=== PATIENT | male | born 1945 | race Caucasian/White ===

== ENCOUNTER → 2016-11-25 | Day surgery (SDC) | payer OTHER, MEDICARE ==
[~2016-11-25] VITALS: Ht 177.8 cm; Wt 83.9 kg
[~2016-11-25] MED LIST: ACETAMINOPHEN 325 MG TAB PO PRN; ASPI1TAB PO; ATOR40TA PO; BETAMETHASONE SOLUSPAN 6MG/ML INJ 5ML (J0702) As Ordered ONE; BSS with VANC/TOB/EPI for EYE CASES IR ONE; CLOP75TA2 PO; CYCLOPENTOLATE 2% OPHTH SOLN OS ONE; D5W/0.2% SODIUM CHLORIDE 1,000 ML IV SCH; HEALON DUET (HEALON 10MG/ML 0.55ML & HEALON ENDOCOAT 30MG/ML 0.85ML) As Ordered ONE; KETOROLAC 0.5% OPHTH SOLN XX ONE; LIDOCAINE 2% W/EPIN INJ 20ML **PRES FREE As Ordered ONE; LIDOCAINE 4% INJ 5 ML AMP OU ONE; METO25TAB PO; MIDAZOLAM INJ 2 MG/2 ML VIAL (J2250) As Ordered ONE; MOXIFLOXACIN IN BSS 0.25MG/0.25ML INTRACAMERAL INJ (OR EYE ONLY)(J2280) As Ordered ONE; MULT1TAB10 PO; OFLOXACIN 0.3 % (OCUFLOX) OPTH SOL 5ML OS ONE; PHENYLEPHRINE 2.5% OPHTH SOL 2ML OS ONE; POVIDONE-IODINE 5% OPHTH PREP SOL 30ML As Ordered ONE; PROPARACAINE 0.5% OPHTH SOL 15ML OS PRN; TOBRADEX OPHTH OINT 3.5 GM As Ordered ONE; TOBRAMYCIN INJ 80 MG/2 ML VIAL (J3260) As Ordered ONE; TRIMETHOBENZAMIDE 300 MG CAP PO PRN; TROPICAMIDE 1% OPHTH SOLN 2 ML OS ONE; fentaNYL 100 MCG/2 ML INJECTION (J3010) As Ordered ONE; mitoMYcin (FOR OPHTHALMIC USE) 0.3MG/1ML SYRINGE IN NaCl (J7999) As Ordered ONE; mitoMYcin (FOR OPHTHALMIC USE) 0.3MG/1ML SYRINGE IN NaCl (J7999) XX SCH
[2016-11-25 11:12] VITALS: BP 130/78
--- NOTE | 2016-11-25 11:29 | RO ---
DATE OF PROCEDURE: 11/25/2016 PREPROCEDURE DIAGNOSIS: Glaucoma, right eye. POSTPROCEDURE DIAGNOSIS: Glaucoma, right eye. PROCEDURE: Placement of the Ex-Press shunt and endocyclophotocoagulation, left eye. SURGEON: Margarita Weathers MD LINEN CONTROLLER: None. ANESTHESIA: COMPLICATIONS: None. DESCRIPTION OF PROCEDURE: Procedure in detail: The patient was brought to the operating room after informed consent, and the eye was prepped and draped in a sterile fashion for ophthalmic surgery. A lid speculum was placed. A suture was then placed through the superior limbus to help rotate the eye inferiorly. The patient's eye was examined, and it was noted that the conjunctiva over the previously-placed Ex-Press shunt was very thin and friable, and it was decided to leave the shunt alone and create a new scleral flap with the new shunt. 2% lidocaine with 1:100,000 epinephrine was then placed in the subconjunctival space supranasally, following which the conjunctival peritomy was done for 2 o'clock hours supranasally, followed by subconjunctival dissection superiorly, medially, and laterally. A limbal-based rectangular scleral flap 4 mm x 3 mm was then placed. Prior to this, mitomycin 0.3 mg per mL was then placed over the scleral bed for 2-1/2 minutes, followed by copious irrigation with balanced salt solution. After the scleral flap was created, it was lifted, and anterior chamber was entered with a 27-guage needle with a blue line. The needle was retracted, and the Ex-Press shunt was then placed through the same opening and draped over by the flap. The conjunctiva was then closed using #8-0 Vicryl sutures and #10-0 nylon sutures. No leaks were noted. Temporal clear corneal incision was then made with a 2.5 mm keratome, and endocyclophotocoagulation was done under direct view on the video camera with the help of the EndoProbe for 280 degrees between 25 mW and 30 mW. Good results were noted by the shrinking of the ciliary processes. Prior to this, EndoCoat and Healon was injected into the anterior chamber to visualize the ciliary processes. At the end of the case, the viscoelastic was aspirated, the wound was hydrated, and lid speculum was removed. The eye was patched with the TobraDex ointment, the Rojas shield applied, and the patient returned to the recovery room in stable condition.
== END | disposition home or self-care (01) ==
LOC: M SDC 09:01
PROVIDERS: ATTEND Ophthalmology
DX: H40.9 Unspecified glaucoma (principal); R07.9 Chest pain, unspecified; I25.10 Atherosclerotic heart disease of native coronary artery without angina pectoris; I10 Essential (primary) hypertension; E78.5 Hyperlipidemia, unspecified; R06.83 Snoring; Z79.899 Other long term (current) drug therapy; Z79.82 Long term (current) use of aspirin; Z95.5 Presence of coronary angioplasty implant and graft
CPT/HCPCS: 66183; 66711; C1783; J2250; J2280; J3010; J7999

== ENCOUNTER 2018-10-25 07:42 | Day surgery (SDC) | payer MEDICARE, OTHER ==
[~2018-10-25] VITALS: Ht 177.8 cm; Wt 81.6 kg
[~2018-10-25 07:42] MED LIST changes: -ACETAMINOPHEN 325 MG TAB PO PRN; +ALPH0.156 OU; -ASPI1TAB PO; +ASPI81TA26 PO; -ATOR40TA PO; +ATOR40TA75 PO; -BETAMETHASONE SOLUSPAN 6MG/ML INJ 5ML (J0702) As Ordered ONE; +BIMA01SOL OD; -BSS with VANC/TOB/EPI for EYE CASES IR ONE; +COSO1SOL3 OU; -CYCLOPENTOLATE 2% OPHTH SOLN OS ONE; -D5W/0.2% SODIUM CHLORIDE 1,000 ML IV SCH; -HEALON DUET (HEALON 10MG/ML 0.55ML & HEALON ENDOCOAT 30MG/ML 0.85ML) As Ordered ONE; -KETOROLAC 0.5% OPHTH SOLN XX ONE; -LIDOCAINE 2% W/EPIN INJ 20ML **PRES FREE As Ordered ONE; -LIDOCAINE 4% INJ 5 ML AMP OU ONE; +METO25TA4 PO; -METO25TAB PO; -MIDAZOLAM INJ 2 MG/2 ML VIAL (J2250) As Ordered ONE; -MOXIFLOXACIN IN BSS 0.25MG/0.25ML INTRACAMERAL INJ (OR EYE ONLY)(J2280) As Ordered ONE; +NS 1,000 ML IV ONE; -OFLOXACIN 0.3 % (OCUFLOX) OPTH SOL 5ML OS ONE; -PHENYLEPHRINE 2.5% OPHTH SOL 2ML OS ONE; -POVIDONE-IODINE 5% OPHTH PREP SOL 30ML As Ordered ONE; -PROPARACAINE 0.5% OPHTH SOL 15ML OS PRN; -TOBRADEX OPHTH OINT 3.5 GM As Ordered ONE; -TOBRAMYCIN INJ 80 MG/2 ML VIAL (J3260) As Ordered ONE; -TRIMETHOBENZAMIDE 300 MG CAP PO PRN; -TROPICAMIDE 1% OPHTH SOLN 2 ML OS ONE; -fentaNYL 100 MCG/2 ML INJECTION (J3010) As Ordered ONE; -mitoMYcin (FOR OPHTHALMIC USE) 0.3MG/1ML SYRINGE IN NaCl (J7999) As Ordered ONE; -mitoMYcin (FOR OPHTHALMIC USE) 0.3MG/1ML SYRINGE IN NaCl (J7999) XX SCH
[2018-10-25] MEDS ORDERED: PROPOFOL 500 MG/50 ML VIAL As Ordered ONE (08:45)
[2018-10-25] MEDS ORDERED: LIDOCAINE 2% INJ 100 MG/5 ML SDV (FOR ANES.) As Ordered ONE (08:45)
--- NOTE | 2018-10-25 09:07 | ROOR ---
Patient Name: Jimmie Conti Procedure Date: 10/25/2018 8:31 AM Date of : 1945 Age: 73 Room: [facility] Gender: Male Note Status: Finalized Procedure: Colonoscopy Indications: High risk colon cancer surveillance: Personal history of non-advanced adenoma, Last colonoscopy: 2011 Providers: Emory Beverly MD Referring MD: Saritha Yap DO Requesting Provider: Medicines: Monitored Anesthesia Care Complications: No immediate complications. Procedure: Pre-Anesthesia Assessment: - Prior to the procedure, a History and Physical was performed, and patient medications and allergies were reviewed. The patient is competent. The risks and benefits of the procedure and the sedation options and risks were discussed with the patient. All questions were answered and informed consent was obtained. Patient identification and proposed procedure were verified by the physician, the nurse and the anesthesiologist in the procedure room. Mental Status Examination: alert and oriented. CV Examination: regular rate and rhythm. Prophylactic Antibiotics: The patient does not require prophylactic antibiotics. Prior Anticoagulants: The patient has taken no previous anticoagulant or antiplatelet agents. ASA Grade Assessment: III - A patient with severe systemic disease. After reviewing the risks and benefits, the patient was deemed in satisfactory condition to undergo the procedure. The anesthesia plan was to use monitored anesthesia care (MAC). Immediately prior to administration of medications, the patient was re-assessed for adequacy to receive sedatives. The heart rate, respiratory rate, oxygen saturations, blood pressure, adequacy of pulmonary ventilation, and response to care were monitored throughout the procedure. The physical status of the patient was re-assessed after the procedure. The Colonoscope was introduced through the anus and advanced to the terminal ileum. The colonoscopy was performed without difficulty. The patient tolerated the procedure well. The quality of the bowel preparation was excellent. Findings: Skin tags were found on perianal exam. Non-bleeding internal hemorrhoids were found. Estimated blood loss: none. The exam was otherwise without abnormality. The terminal ileum appeared normal. Impression: - Perianal skin tags found on perianal exam. - Non-bleeding internal hemorrhoids. - The examination was otherwise normal. - No specimens collected. Recommendation: - Discharge patient to home. - Resume previous diet. - Continue present medications. - Repeat colonoscopy in 5 years for surveillance. Emory Beverly MD Emory Beverly MD 10/25/2018 9:07:28 AM This report has been signed electronically. Number of Addenda: 0 Note Initiated On: 10/25/2018 8:31 AM Estimated Blood Loss: Estimated blood loss: none.
[2018-10-25 09:30] VITALS: BP 125/76
== END 2018-10-25 09:46 | disposition home or self-care (01) ==
LOC: M OPP 07:42
PROVIDERS: ATTEND Surgery
DX: Z12.11 Encounter for screening for malignant neoplasm of colon (principal); Z86.010 Personal history of colon polyps; K64.8 Other hemorrhoids; K64.4 Residual hemorrhoidal skin tags; Z79.82 Long term (current) use of aspirin; Z79.899 Other long term (current) drug therapy; Z95.5 Presence of coronary angioplasty implant and graft

== ENCOUNTER → 2018-10-31 | Outpatient (REF) | payer OTHER ==
[~2018-10-31] MED LIST changes: +ASPI1TAB PO; -ASPI81TA26 PO; -NS 1,000 ML IV ONE
[2018-10-31 19:19] LABS: BASO % 0.5 % (0.0-1.0); EOS # 0.1 10^3/uL (0.0-0.50); EOS % 2.2 % (0.0-3.0); HEMATOCRIT 48.4 % (42.0-52.0); HEMOGLOBIN 16.2 g/dl (13.5-17.5); LYMPH % 24.9 % (24.0-44.0); MEAN CORPUSCULAR HEMOGLOBIN 32.3 pg (27.0-33.0); MEAN CORPUSCULAR HGB CONC 33.5 g/dl (32.0-36.5); MEAN CORPUSCULAR VOLUME 96.6 fl (80.0-96.0); MONO # 0.7 10^3/uL (0.0-0.8); MONO % 16.1 % (0.0-5.0); NEUTROPHILS # 2.3 10^3/uL (1.8-7.7); NEUTROPHILS % 56.1 % (36.0-66.0); PLATELET COUNT, AUTOMATED 125 10^3/uL (150-450); RED BLOOD COUNT 5.01 10^6/uL (4.30-6.10); WHITE BLOOD COUNT 4.1 10^3/uL (4.0-10.0)
[2018-10-31 19:30] LABS: BLOOD UREA NITROGEN 25 MG/DL (7-18); CALCIUM LEVEL 8.8 MG/DL (8.8-10.2); CARBON DIOXIDE LEVEL 26 MEQ/L (21-32); CHLORIDE LEVEL 107 MEQ/L (98-107); CREATININE FOR GFR 1.13 MG/DL (0.70-1.30); GLOMERULAR FILTRATION RATE > 60.0 (>42); GLUCOSE, FASTING 111 MG/DL (70-100); POTASSIUM SERUM 4.4 MEQ/L (3.5-5.1); SODIUM LEVEL 142 MEQ/L (136-145)
== END ==
LOC: M LAB REF 18:28
PROVIDERS: ATTEND Family Medicine
DX: I25.10 Atherosclerotic heart disease of native coronary artery without angina pectoris (principal); E78.49 Other hyperlipidemia; Z00.00 Encounter for general adult medical examination without abnormal findings; I10 Essential (primary) hypertension

== ENCOUNTER → 2020-09-12 | Outpatient (CLI) | payer MEDICARE, OTHER ==
[~2020-09-12] MED LIST changes: -ASPI1TAB PO; +ASPI81TA26 PO; +BETI1SOL OU; +VITMTA PO
== END ==
LOC: M LABSMTC 09:35
PROVIDERS: ATTEND Anesthesiology
DX: Z01.812 Encounter for preprocedural laboratory examination (principal); Z20.822 Contact with and (suspected) exposure to COVID-19

== ENCOUNTER 2020-09-17 10:43 | Day surgery (SDC) | payer MEDICARE, OTHER ==
[~2020-09-17] VITALS: Ht 177.8 cm; Wt 81.1 kg
[~2020-09-17 10:43] MED LIST changes: +LR 1,000 ML IV ONE
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
--- OUTSIDE RECORDS SUMMARY | 2020-09-17 10:49 | CCD | Continuity of Care Document ---
Author Author Jimmie TOVAR M.D. Organization Unknown Address [address], [address] [place] [address] Phone [phone] Problems Active Problems Provider Date Essential hypertension Emory Tovar M.D. Onset: 6 History of polyp of colon CHASITY Davis Onset: 018 Social History Type Date Description Comments Sex Unknown ETOH Use Currently consumes alcohol 10 BE ERS PER WEEK Tobacco Use Start: Unknown Denies Smoking Recreational Drug Use Denies Drug Use Allergies, Adverse Reactions, Alerts Description No Known Drug Allergies Medications Active Medications SIG Qnty Indications Ordering Provide r Date Atorvastatin Calcium 40mg Tablets daily Unknown Clopidogrel Bisulfate 75mg Tablets daily Unknown Metoprolol Succinate ER 100mg Tablets ER 24HR 1 by mouth twice a day 60tabs Unknown Multivitamin Adult Tablets once a day Unknown Aspirin 81mg Tablets 1 by mouth every day Unknown Timolol Maleate Ophthalmic Gel Forming 0.5% GFS 1 Drop Both Eyes bid Unknown 000 Simbrinza 1-0.2% Suspension 1 Drop Both Eyes bid Unknown Brimonidine Tartrate 0.2% Solution 1 GTT Both Eyes bid Unknown Pilocarpine HCL 2% Solution 1 GTT Left Eye tid Unknown Latanoprost 0.005% Solution 1 GTT Both Eyes AT hs Unknown Vitamin D (Cholecalciferol) 25mcg (1000 Ut) Tablets once daily. Unknown Immunizations Description No Information Available Vital Signs Date Vital Result Comment 07/22/2020 8:59am BP Systolic 174 mmHg BP Diastolic 92 mmHg Height 70 inches 5'10" Weight 183.38 lb BMI (Body Mass Index) 26.3 kg/m2 [place] Body Weight 166 lb Weight 83.179 kg BSA (Body Surface Area) 2.01 m2 04/22/2020 10:58am BP Systolic 150 mmHg BP Diastolic 98 mmHg Height 70 inches 5'10" Weight 177.00 lb BMI (Body Mass Index) 25.4 kg/m2 [place] Body Weight 166 lb Weight 80.287 kg BSA (Body Surface Area) 1.98 m2 Results Description No Information Available Procedures Description No Information Available Medical Devices Description No Information Available Encounters Type Date Location Provider Dx Diagnosis Office Visit 04/22/2020 11:[address]a [facility] Emory saldaña M.D. K40.90 Unil inguinal hernia, w/o obst or gangr, not spcf as recur Assessments Date Code Description Provider 04/22/2020 K40.90 Unilateral inguinal hernia, with out obstruction or gangrene, Emory Tovar M.D. Plan of Treatment 04/22/2020 - Emory Tovar M.D.* K40.90 Unilateral inguinal hernia, without obstruction or gangrene,* Comments:* Patient with definite reducible left inguinal hernia. He reports this seems larger than it had been. Some discomfort. Reports he would like to have it fixed [place] I counseled him regarding repair of his hernia. I have recommended a robotic-assisted laparoscopic left inguinal hernia repair with mesh. Risks of the procedure were discussed. Patient had an opportunity to ask questions. Patient would like to have the surgery done later this year. He will follow up in June to schedule surgery in July. We will need preoperative medical optimization given his history of cardiac surgery. Functional Status Description No Information Available Mental Status Description No Information Available Referrals Description No Information Available
--- OUTSIDE RECORDS SUMMARY | 2020-09-17 10:49 | CCD ---
Author Author [facility] Organization [facility] Address Unknown Phone Unavailable Care Team Providers Care Banana Expert Name Role Phone Linda KAM MD Unavailable Unavailable Linda KAM MD Unavailable Unavailable Linda KAM MD Unavailable Unavailable Linda KAM MD Unavailable Unavailable Linda KAM MD Unavailable Unavailable Linda KAM MD Unavailable Unavailable Linda KAM MD Unavailable Unavailable Linda KAM MD Unavailable Unavailable Linda KAM MD Unavailable Unavailable Linda KAM MD Unavailable Unavailable Linda KAM MD Unavailable Unavailable Linda KAM MD Unavailable Unavailable Linda KAM MD Unavailable Unavailable Linda KAM MD Unavailable Unavailable Linda KAM MD Unavailable Unavailable Linda KAM MD Unavailable Unavailable Linda KAM MD Unavailable Unavailable Linda KAM MD Unavailable Unavailable Linda KAM MD Unavailable Unavailable EDDY, S AYMAN MD Unavailable Unavailable EDDY, S AYMAN MD Unavailable Unavailable EDDY, S AYMAN MD Unavailable Unavailable EDDY, S AYMAN MD Unavailable Unavailable EDDY, S AYMAN MD Unavailable Unavailable EDDY, S AYMAN MD Unavailable Unavailable EDDY, S AYMAN MD Unavailable Unavailable EDDY, S AYMAN MD Unavailable Unavailable EDDY, S AYMAN MD Unavailable Unavailable EDDY, S AYMAN MD Unavailable Unavailable EDDY, S AYMAN MD Unavailable Unavailable EDDY, S AYMAN MD Unavailable Unavailable EDDY, S AYMAN MD Unavailable Unavailable EDDY, S AYMAN MD Unavailable Unavailable EDDY, S AYMAN MD Unavailable Unavailable EDDY, S AYMAN MD Unavailable Unavailable EDDY, S AYMAN MD Unavailable Unavailable EDDY, S AYMAN MD Unavailable Unavailable EDDY, S AYMAN MD Unavailable Unavailable EDDY, S AYMAN MD Unavailable Unavailable EDDY, S AYMAN MD Unavailable Unavailable EDDY, S AYMAN MD Unavailable Unavailable EDDY, S AYMAN MD Unavailable Unavailable EDDY, S AYMAN MD Unavailable Unavailable EDDY, S AYMAN MD Unavailable Unavailable EDDY, S AYMAN MD Unavailable Unavailable EDDY, S AYMAN MD Unavailable Unavailable EDDY, S AYMAN MD Unavailable Unavailable EDDY, S AYMAN MD Unavailable Unavailable EDDY, S AYMAN MD Unavailable Unavailable EDDY, S AYMAN MD Unavailable Unavailable EDDY, S AYMAN MD Unavailable Unavailable EDDY, S AYMAN MD Unavailable Unavailable EDDY, S AYMAN MD Unavailable Unavailable EDDY, S AYMAN MD Unavailable Unavailable EDDY, S AYMAN MD Unavailable Unavailable EDDY, S AYMAN MD Unavailable Unavailable EDDY, S AYMAN MD Unavailable Unavailable EDDY, S AYMAN MD Unavailable Unavailable EDDY, S AYMAN MD Unavailable Unavailable EDDY, S AYMAN MD Unavailable Unavailable EDDY, S AYMAN MD Unavailable Unavailable EDDY, S AYMAN MD Unavailable Unavailable EDDY, S AYMAN MD Unavailable Unavailable EDDY, S AYMAN MD Unavailable Unavailable EDDY, S AYMAN MD Unavailable Unavailable EDDY, S AYMAN MD Unavailable Unavailable EDDY, S AYMAN MD Unavailable Unavailable Linda KAM MD Unavailable Unavailable Linda KAM MD Unavailable Unavailable Linda KAM MD Unavailable Unavailable Linda KAM MD Unavailable Unavailable EDDYLinda TOLEDO MD Unavailable Unavailable Linda KAM MD Unavailable Unavailable Linda KAM MD Unavailable Unavailable Linda KAM MD Unavailable Unavailable Linda KAM MD Unavailable Unavailable Linda KAM MD Unavailable Unavailable Linda KAM MD Unavailable Unavailable Linda KAM MD Unavailable Unavailable Linda KAM MD Unavailable Unavailable LA, Roberto JASSO MD Unavailable Unavailable LA, Robreto JASSO MD Unavailable Unavailable LA, Roberto JASSO MD Unavailable Unavailable LA, Roberto JASSO MD Unavailable Unavailable LA, Roberto JASSO MD Unavailable Unavailable LA, Roberto JASSO MD Unavailable Unavailable LA, Roberto JASSO MD Unavailable Unavailable LA, Roberto JASSO MD Unavailable Unavailable LA, Roberto JASSO MD Unavailable Unavailable LA, Roberto JASSO MD Unavailable Unavailable LA, Roberto JASSO MD Unavailable Unavailable LA, Roberto JASSO MD Unavailable Unavailable LA, Roberto JASSO MD Unavailable Unavailable LA, Roberto JASSO MD Unavailable Unavailable LA, Roberto JASSO MD Unavailable Unavailable LA, Roberto JASSO MD Unavailable Unavailable LA, Roberto JASSO MD Unavailable Unavailable LA, Roberto JASSO MD Unavailable Unavailable LA, Roberto JASSO MD Unavailable Unavailable LA, Roberto JASSO MD Unavailable Unavailable LA, Roberto JASSO MD Unavailable Unavailable LA, Roberto JASSO MD Unavailable Unavailable LA, Roberto JASSO MD Unavailable Unavailable LA, Roberto JASSO MD Unavailable Unavailable LA, Roberto JASSO MD Unavailable Unavailable LA, Roberto JASSO MD Unavailable Unavailable LA, Roberto JASSO MD Unavailable Unavailable LA, Roberto JASSO MD Unavailable Unavailable LA, Roberto JASSO MD Unavailable Unavailable LA, Roberto JASSO MD Unavailable Unavailable LA, Roberto JASSO MD Unavailable Unavailable LA, Roberto JASSO MD Unavailable Unavailable LA, Roberto JASSO MD Unavailable Unavailable LA, O LOUISA MCGRATH Unavailable Unavailable LA, Roberto JASSO MD Unavailable Unavailable LA, O LOUISA MCGRATH Unavailable Unavailable LA, O LOUISA MCGRATH Unavailable Unavailable LA, Roberto JASSO MD Unavailable Unavailable LA, O LOUISA MCGRATH Unavailable Unavailable LA, Roberto JASSO MD Unavailable Unavailable LA, Roberto JASSO MD Unavailable Unavailable DENNY, A JANE DO Unavailable Unavailable DENNY, A JANE DO Unavailable Unavailable DENNY, A JANE DO Unavailable Unavailable DENNY, A JANE DO Unavailable Unavailable DENNY, A JANE DO Unavailable Unavailable DENNY, A JANE DO Unavailable Unavailable DENNY, A JANE DO Unavailable Unavailable DENNY, A JANE DO Unavailable Unavailable DENNY, A JANE DO Unavailable Unavailable DENNY, A JANE DO Unavailable Unavailable DENNY, A JANE DO Unavailable Unavailable DENNY, A JANE DO Unavailable Unavailable DENNY, A JANE DO Unavailable Unavailable DENNY, A JANE DO Unavailable Unavailable DENNY, A JANE DO Unavailable Unavailable DENNY, A JANE DO Unavailable Unavailable DENNY, A JANE DO Unavailable Unavailable DENNY, A JANE DO Unavailable Unavailable DENNY, A JANE DO Unavailable Unavailable DENNY, A JANE DO Unavailable Unavailable DENNY, A JANE DO Unavailable Unavailable DENNY, A JANE DO Unavailable Unavailable DENNY, A JANE DO Unavailable Unavailable DENNY, A JANE DO Unavailable Unavailable DENNY, A JANE DO Unavailable Unavailable DENNY, A JANE DO Unavailable Unavailable DENNY, A JANE DO Unavailable Unavailable DENNY, A JANE DO Unavailable Unavailable DENNY, A JANE DO Unavailable Unavailable DENNY, A JANE DO Unavailable Unavailable DENNY, A JANE DO Unavailable Unavailable DENNY, A JANE DO Unavailable Unavailable DENNY, A JANE DO Unavailable Unavailable DENNY, A JANE DO Unavailable Unavailable DENNY, A JANE DO Unavailable Unavailable DENNY, A JANE DO Unavailable Unavailable DENNY, A JANE DO Unavailable Unavailable DENNY, A JANE DO Unavailable Unavailable DENNY, A JANE DO Unavailable Unavailable DENNY, A JANE DO Unavailable Unavailable DENNY, A JANE DO Unavailable Unavailable DENNY, A JANE DO Unavailable Unavailable DENNY, A JANE DO Unavailable Unavailable DENNY, A JANE DO Unavailable Unavailable DENNY, A JANE DO Unavailable Unavailable DENNY, A JANE DO Unavailable Unavailable DENNY, A JANE DO Unavailable Unavailable DENNY, A JANE DO Unavailable Unavailable DENNY, A JANE DO Unavailable Unavailable DENNY, A JANE DO Unavailable Unavailable DENNY, A JANE DO Unavailable Unavailable DENNY, A JANE DO Unavailable Unavailable DENNY, A JANE DO Unavailable Unavailable DENNY, A JANE DO Unavailable Unavailable DENNY, A JANE DO Unavailable Unavailable DENNY, A JANE DO Unavailable Unavailable DENNY, A JANE DO Unavailable Unavailable DENNY, A JANE DO Unavailable Unavailable DENNY, A JANE DO Unavailable Unavailable DENNY, A JANE DO Unavailable Unavailable DENNY, A JANE DO Unavailable Unavailable DENNY, A JANE DO Unavailable Unavailable DENNY, A JANE DO Unavailable Unavailable BHARGAVI, J MITALI PA Unavailable Unavailable BHARGAVI, J MITALI PA Unavailable Unavailable BHARGAVI, J MITALI PA Unavailable Unavailable BHARGAVI, J MITALI PA Unavailable Unavailable BHARGAVI, J MITALI PA Unavailable Unavailable BHARGAVI, J MITALI PA Unavailable Unavailable BHARGAVI, J MITALI PA Unavailable Unavailable BHARGAVI, J MITALI PA Unavailable Unavailable BHARGAVI, J MITALI PA Unavailable Unavailable BHARGAVI, J MITALI PA Unavailable Unavailable BHARGAVI, J MITALI PA Unavailable Unavailable BHARGAVI, J MITALI PA Unavailable Unavailable BHARGAVI, J MITALI PA Unavailable Unavailable BHARGAVI, J MITALI PA Unavailable Unavailable BHARGAVI, J MITALI PA Unavailable Unavailable BHARGAVI, J MITALI PA Unavailable Unavailable BHARGAVI, J MITALI PA Unavailable Unavailable BHARGAVI, J MITALI PA Unavailable Unavailable BHARGAVI, J MITALI PA Unavailable Unavailable BHARGAVI, J MITALI PA Unavailable Unavailable BHARGAVI, J MITALI PA Unavailable Unavailable BHARGAVI, J MITALI PA Unavailable Unavailable BHARGAVI, J MITALI PA Unavailable Unavailable BHARGAVI, J MITALI PA Unavailable Unavailable BHARGAVI, J MITALI PA Unavailable Unavailable BHARGAVI, J MITALI PA Unavailable Unavailable BHARGAVI, J MITALI PA Unavailable Unavailable BHARGAVI, J MITALI PA Unavailable Unavailable BHARGAVI, J MITALI PA Unavailable Unavailable BHARGAVI, J MITALI PA Unavailable Unavailable BHARGAVI, J MITALI PA Unavailable Unavailable BHARGAVI, J MITALI PA Unavailable Unavailable BHARGAVI, J MITALI PA Unavailable Unavailable BHARGAVI, J MITALI PA Unavailable Unavailable BHARGAVI, J MITALI PA Unavailable Unavailable BHARGAVI, J MITALI PA Unavailable Unavailable Juan Carlos Ness MD Unavailable Unavailable Juan Carlos Ness MD Unavailable Unavailable Juan Carlos Ness MD Unavailable Unavailable Juan Carlos Ness MD Unavailable Unavailable Juan Carlos Ness MD Unavailable Unavailable Juan Carlos Ness MD Unavailable Unavailable Thi, Juan Carlos Carvajal MD Unavailable Unavailable Thi, Juan Carlos Carvajal MD Unavailable Unavailable Thi, Juan Carlos Wei MD Unavailable Unavailable Thi, Juan Carlos Wei MD Unavailable Unavailable Thi, Juan Carlos Wei MD Unavailable Unavailable Thi, Juan Carlos Wei MD Unavailable Unavailable Thi, Juan Carlos Wei MD Unavailable Unavailable Thi, Juan Carlos Carvaajl MD Unavailable Unavailable Thi, Juan Carlos Carvajal MD Unavailable Unavailable Thi, Juan Carlos Wei MD Unavailable Unavailable Thi, Juan Carlos Carvajal MD Unavailable Unavailable Thi, Juan Carlos Wei MD Unavailable Unavailable Thi, Juan Carlos Wei MD Unavailable Unavailable Thi, Juan Carlos Carvajal MD Unavailable Unavailable Thi, Juan Carlos Carvajal MD Unavailable Unavailable Thi, Juan Carlos Carvajal MD Unavailable Unavailable Thi, Juan Carlos Carvajal MD Unavailable Unavailable Thi, Juan Carlos Carvajal MD Unavailable Unavailable Thi, G Wei MCGRATH Unavailable Unavailable Thi, Juan Carlos Carvajal MD Unavailable Unavailable Thi, Juan Carlos Carvajal MD Unavailable Unavailable Thi, Juan Carlos Carvajal MD Unavailable Unavailable Thi, Juan Carlos Carvajal MD Unavailable Unavailable Thi, Juan Carlos Carvajal MD Unavailable Unavailable Thi, Juan Carlos Carvajal MD Unavailable Unavailable Thi, Juan Carlos Carvajal MD Unavailable Unavailable Thi, Juan Carlos Carvajal MD Unavailable Unavailable Thi, Juan Carlos Carvajal MD Unavailable Unavailable Thi, Juan Carlos Carvajal MD Unavailable Unavailable Thi, Juan Carlos Carvajal MD Unavailable Unavailable Thi, Juan Carlos Carvajal MD Unavailable Unavailable Thi, Juan Carlos Carvajal MD Unavailable Unavailable Thi, Juan Carlos Wei MD Unavailable Unavailable Thi, Juan Carlos Carvajal MD Unavailable Unavailable Thi, Juan Carlos Carvajal MD Unavailable Unavailable Thi, Juan Carlos Carvajal MD Unavailable Unavailable Thi, Juan Carlos Carvajal MD Unavailable Unavailable Thi, Juan Carlos Carvajal MD Unavailable Unavailable Thi, Juan Carlos Carvajal MD Unavailable Unavailable Thi, Juan Carlos Carvajal MD Unavailable Unavailable Thi, Juan Carlos Carvajal MD Unavailable Unavailable GRUNSTEIN, L LEV Unavailable Unavailable Re-disclosure Warning The records that you are about to access may contain information from federally-assisted alcohol or drug abuse programs. If such information is present, then the following federally mandated warning applies: This information has been disclosed to you from records protected by federal confidentiality rules (42 CFR part 2). The federal rules prohibit you from making any further disclosure of this information unless further disclosure is expressly permitted by the written consent of the person to whom it pertains or as otherwise permitted by 42 CFR part 2. A general authorization for the release of medical or other information is NOT sufficient for this purpose. The Federal rules restrict any use of the information to criminally investigate or prosecute any alcohol or drug abuse patient.The records that you are about to access may contain highly sensitive health information, the redisclosure of which is protected by Article 27-F of the [place] [employer] Public Health law. If you continue you may have access to information: Regarding HIV / AIDS; Provided by facilities licensed or operated by the [employer] Office of Mental Health; or Provided by the [employer] Office for People With Developmental Disabilities. If such information is present, then the following [employer] mandated warning applies: This information has been disclosed to you from confidential records which are protected by state law. State law prohibits you from making any further disclosure of this information without the specific written consent of the person to whom it pertains, or as otherwise permitted by law. Any unauthorized further disclosure in violation of state law may result in a fine or mcc sentence or both. A general authorization for the release of medical or other information is NOT sufficient authorization for further disc losure. Allergies and Adverse Reactions Type Description Substance Reaction Status Data Source(s ) Drug Class NO KNOWN ALLERGIES NO KNOWN ALLERGIES [facility] Family History Family Member Name Family Member Gender Family Member Status Date o f Status Description Data Source(s) Unknown Male Problem [facility] ([facility], ) Unknown Male Problem [facility] ([facility] Encounters Encounter Providers Location Date Indications Data Source(s ) Outpatient Attender: Wei Ness MD 09/26/2020 12:00:00 AM [facility] Outpatient Attender: Wei DAMONeferrer: ETHAN Grissom [id number] 09/11/2020 12:00:00 AM [facility] - 09/11/2020 11:17:08 AM EST Puckering of macula, bilateral [facility] Puckering of macula, bilateral Outpatient Attender: MITALI Alonso: BOBO BALDWIN DO EMERGENCY ROOM[facility] 09/04/2020 08:15:00 AM EST - 09/04/2020 08:15:00 AM [facility] Outpatient Attender: LOUISA Tarango/Nelson/Flex/Nydia montez 04/22/2020 11:00:00 AM EDT [facility] ([facility]) Outpatient Attender: BRITTANY KAM MD [facility] 11/29/2019 10:30:00 AM EDT [facility] ([facility] Outpatient Attender: JANE BALDWIN DO 2018 07:30:00 AM EDT - 12/08/2018 07:30:00 AM [facility] Outpatient Attender: JANE BALDWIN DO EMERGENCY ROOM-[facility] R[facility] 09/16/2015 11:00:00 AM [facility] Medications Medication Brand Name Start Date Product Form Dose Route Admi nistrative Instructions Pharmacy Instructions Status Indications Reaction Description Data Source(s) lidocaine (XYLOCAINE) 2 % injection 2.5 mL [id number] 09/11/2020 11:45:00 AM EST 2.5 mL Infiltration completed 2 .5 mL, Infiltration, Once, Wed09/11/20 at 1145, For 1 dose [facility] Medication administered onsite bupivacaine (PF) 0.75 % injection 2.5 mL [id number] 09/11/2020 11 :45:00 AM EST 2.5 mL Infiltration completed 2.5 mL, Infiltration, Once, Wed09/11/20 at 1145, For 1 dose [facility] Medication administered onsite Dexamethasone 0.001 MG/MG / Neomycin 0.0 035 MG/MG / Polymyxin B 10 UNT/MG Ophthalmic Ointment seigfrxm-kcqqcathq-ugubfwwrrgebg (MAXITROL) 3.5-10570-9.1 ophthalmic ointment 1 inch wugqrdjy-kyiemxuka-ydtxlhlzpiuvu (MAXITR OL) 3.5-06875-6.1 ophthalmic ointment 1 inch 09/11/2020 11:45:00 AM EST 1 [in_us] Left Eye completed 1 inch, Left E ye, Once, Wed09/11/20 at 1145, For 1 dose [facility] Medication administered onsite 1 ML Triamcinolone Acetonide 40 MG/ML Pr efilled Syringe triamcinolone acetonide (KENALOG-40) injection 40 mg triamcinolone acetonide (KENALOG-40) inj ection 40 mg 09/11/2020 11:45:00 AM EST 40 mg Other completed 40 mg, Other, Once, Wed09/11/20 at 1145, For 1 dose [facility] Medication administered onsite Lidocaine Hydrochloride 0.035 MG/MG Opht halmic Gel lidocaine (XYLOCAINE) 3.5 % ophthalmic gel lidocaine (XYLOCAINE) 3.5 % ophthalmic gel 09/11/2020 11:45:00 AM EST Ophthalmic completed Oph thalmic, Once, Wed09/11/20 at 1145, For 1 dose [facility] Medication administered onsite Tetracaine hydrochloride 5 MG/ML Ophthal abel Solution tetracaine (PONTOCAINE) 0.5 % ophthalmic solution 1 drop tetracaine (PONTOCAINE) 0.5 % ophthalmic solution 1 drop 09/11/2020 11:45:00 AM EST 1 [drp] Left Eye acti ve Bilateral ocular hypertension [facility] Bilateral ocular hypertension Phenylephrine Hydrochloride 25 MG/ML Oph thalmic Solution phenylephrine (MYDFRIN) 2.5 % ophthalmic solution 1 drop phenylephrine (MYDFRIN) 2.5 % ophthalmic solution 1 drop 09/11/2020 10:30:00 AM EST 1 [drp] Both Eyes completed 1 drop, Both Eyes, Once, Wed09/11/20 at 1030, For 1 do se [facility] Medication administered onsite Tropicamide 10 MG/ML Ophthalmic Solution tropicamide (MYDRIACYL) 1 % ophthalmic solution 1 drop tropicamide (MYDRIACYL) 1 % ophthalmic solution 1 drop 09/11/2020 10:30:00 AM EST 1 [drp] Both Eyes completed 1 drop, Both Eyes, Once, Wed09/11/20 at 1030, For 1 dose [facility] Medication administered onsite fluorescein-benoxinate (FLURATE) 0.25-0.4 % ophthalmic solution 1 drop [id number] 09/11/2020 09:45:00 AM EST 1 [drp] Both Eyes c ompleted 1 drop, Both Eyes, Once, Wed09/11/20 at 0945, For 1 dose [facility] Medication administered onsite Insurance Providers Payer name Policy type / Coverage type Policy ID Covered constitution party ID Covered constitution party's relationship to [place] Policy [place] Plan Information MEDICARE [id number] [facility] [id number] [facility] [id number] OTHER B [id number] Self [id number] OTHER B [id number] Self [id number] [facility] [id number] SPO [id number] [employer] MEDICARE DIVISION [id number] S [id number] MEDICARE - [place] [id number] S [id number] OTHER B [id number] Self [id number] [employer] [id number] SPO [id number] UMR 2 [id number] 1 [id number] [facility] MEDICARE 1 [id number] 1 [id number] Umr Commercial [id number] Family Dependent [id number] Medicare [place] Medicare Primary [id number] Self [id number] Medicare Medidemarest Part B [id number] Self [id number] Umr Commercial [id number] Family Dependent [id number] UMR [id number] S [id number] MEDICARE [id number] SP [id number] [facility] [id number] WI2 [id number] MEDICARE [id number] SP [id number] A [employer] [id number] WI2 [id number] SELF PAY 2 UNAVAILABLE 1 UNAVAILA BLE MEDICARE 4 [id number] 1 [id number] A [employer] PPO 2 [id number] MEDICARE 4 [id number] A [id number] Problems, Conditions, and Diagnoses Code Display Name Description Problem Type Effective Dates Data Source(s) H40.053 Ocular hypertension, bilateral Ocular hypertension, bi lateral Diagnosis 09/11/2020 09:30:49 AM [facility] H35.373 Puckering of macula, bilateral Puckering of macula, bi lateral Diagnosis 09/11/2020 09:30:49 AM [facility] E78.00 PURE HYPERCHOLESTEROLEMIA, UNSPECIFIED P URE HYPERCHOLESTEROLEMIA, UNSPECIFIED Diagnosis 09/04/2020 08:15:00 AM EST [facility] Surgeries/Procedures Procedure Description Date Indications Data Source(s) CYCLOPHOTOCOAGULATION CYCLOPHOTOCOAGULATION Routine 11:40 AM EST Bilateral ocular hypertension 09/11/2020 11:40:06 AM EST Ashu ateral ocular hypertension [facility] Bilateral ocular hypertension Results ID Date Data Source [id number] 09/12/2020 10:00:00 AM EST [facility] Name Value Range Interpretation Code Description Data Cindy rce(s) Supporting Document(s) SARS coronavirus 2 RNA Not Detected [facility] This lab was ordered by [facility] and reported by [facility]. ID Date Data Source [id number] 09/11/2020 11:42:20 AM EST [facility] Name Value Range Interpretation Code Description Data Cindy rce(s) Supporting Document(s) Progress Note [facility] [id number] [file] [id number] ID Date Data Source [id number] 09/04/2020 09:25:00 AM EST [facility] [phone] Name Value Range Interpretation Code Description Data Cindy rce(s) Supporting Document(s) CREATINE PHOSPHOKINASE 114 U/L 39-308 [facility] ID Date Data Source [id number] 09/04/2020 09:25:00 AM EST [facility] [phone] Name Value Range Interpretation Code Description Data Cindy rce(s) Supporting Document(s) CHOLESTEROL 226 mg/dL 0-200 [facility] TRIGLYCERIDES 139 mg/dL 0-150 [facility] LDL CHOLESTEROL 159 mg/dL 0-100 H [facility] HDL CHOLESTEROL 39 mg/dL 40-60 L [facility] CHOL/HDL RATIO 5.8 0.0-5.0 H [facility] ID Date Data Source [id number] 09/04/2020 09:25:00 AM EST [facility] [phone] Name Value Range Interpretation Code Description Data Cindy rce(s) Supporting Document(s) ALT 34 U/L 12-78 [facility] ID Date Data Source [id number] 09/04/2020 09:25:00 AM EST [facility] [phone] Name Value Range Interpretation Code Description Data Cindy rce(s) Supporting Document(s) AST 17 U/L 15-37 [facility] Procedure Social History Code Duration Value Status Description Data Source(s ) Alcohol intake 09/11/2020 12:00:00 AM EST Current drinker of al cohol (finding) completed Current drinker of alcohol (finding) [facility] Tobacco use and exposure 09/11/2020 12:00:00 AM EST Never used co mpleted Never used [facility] Smoking 09/11/2020 12:00:00 AM EST Never smoker completed Never s [facility] Vital Signs ID Date Data Source UNK Name Value Range Interpretation Code Description Data Source(s) Body surface area Derived from formula 2.01 m2 2.01 m2 [facility] ([facility]) Body weight 83.179 kg 83.179 [facility] [place] body weight 166 [lb_av] 166 [lb_av] [facility] ([facility]) Body mass index (BMI) [Ratio] 26.3 kg/m2 26.3 k g/m2 [facility] Body weight 183.38 [lb_av] 183.38 [lb_av] [facility] ([facility]) Body height 70 [in_i] 70 [in_i] [facility] ([facility]) 5'10" Diastolic blood pressure 92 mm[Hg] 92 mm[Hg] [facility] ([facility]) Systolic blood pressure 174 mm[Hg] 174 mm[Hg] [facility] ([facility]) Body surface area Derived from formula 1.98 m2 1.98 m2 [facility] ([facility]) Body weight 80.287 kg 80.287 kg [facility] ([facility]) [place] body weight 166 [lb_av] 166 [lb_av] [facility] ([facility]) Body mass index (BMI) [Ratio] 25.4 kg/m2 25.4 k g/m2 [facility] ([facility]) Body weight 177.00 [lb_av] 177.00 [lb_av] [facility] ([facility]) Body height 70 [in_i] 70 [in_i] [facility] 5'10" Diastolic blood pressure 98 mm[Hg] 98 mm[Hg] [facility] ([facility]) Systolic blood pressure 150 mm[Hg] 150 mm[Hg] [facility] Body surface area 1.95 m2 1.95 m2 [facility] Body mass index (BMI) [Ratio] 25.8 kg/m2 25.8 k g/m2 [facility] ([facility] Body height 69 [in_i] 69 [in_i] [facility] ([facility]) 5'9" Body weight 175.00 [lb_av] 175.00 [lb_av] MEDEN T ([facility]) Heart rate 64 /min 64 /min [facility] ([facility] Diastolic blood pressure 67 mm[Hg] 67 mm[Hg] [facility] ([facility]) Systolic blood pressure 108 mm[Hg] 108 mm[Hg] M [facility] ([facility]) Patient Treatment Plan of Care Planned Activity Planned Date Details Description Data Source (s) 1 ML Triamcinolone Acetonide 40 MG/ML Prefilled Syring e 09/11/2020 11:45:00 AM [facility] Lidocaine Hydrochloride 0.035 MG/MG Ophthalmic Gel 09/11/2020 11 :45:00 AM [facility] Dexamethasone 0.001 MG/MG / Neomycin 0.0 035 MG/MG / Polymyxin B 10 UNT/MG Ophthalmic Ointment 09/11/2020 11:45:00 AM [facility] bupivacaine (PF) 0.75 % injection 2.5 mL 09/11/2020 11:45:00 AM [facility] lidocaine (XYLOCAINE) 2 % injection 2.5 mL 09/11/2020 11:45:00 AM [facility] Tetracaine hydrochloride 5 MG/ML Ophthalmic Solution 021 11:45:00 AM [facility] Tropicamide 10 MG/ML Ophthalmic Solution 09/11/2020 10:30:00 AM [facility] Phenylephrine Hydrochloride 25 MG/ML Ophthalmic Soluti on 09/11/2020 10:30:00 AM [facility] fluorescein-benoxinate (FLURATE) 0.25-0.4 % ophthalmic solution 1 drop 09/11/2020 09:45:00 AM [facility]
[2020-09-17] MEDS ORDERED: ROCURONIUM BROMIDE 50 MG/5 ML VIAL As Ordered ONE ×2 (11:39→14:05)
[2020-09-17] MEDS ORDERED: LIDOCAINE 2% 100MG/5ML SDV (FOR ANES.) As Ordered ONE (11:39)
[2020-09-17] MEDS ORDERED: propofoL 200 MG/20 ML VIAL As Ordered ONE ×2 (11:39→14:55)
[2020-09-17] MEDS ORDERED: fentaNYL 250 MCG/5 ML INJECTION (J3010) As Ordered ONE (11:39)
[2020-09-17] MEDS ORDERED: MIDAZOLAM INJ 2MG/2ML VIAL (J2250 PER 1MG) As Ordered ONE (11:39)
[2020-09-17] MEDS ORDERED: BUPIVACAINE HCL 0.25% 30ML VIAL As Ordered ONE (13:10)
[2020-09-17] MEDS ORDERED: METOCLOPRAMIDE INJ 10MG/2ML VIAL (J2765 PER 1) As Ordered ONE ×2 (13:43→17:33)
[2020-09-17] MEDS ORDERED: ePHEDrine SULFATE 25 MG/5 ML(5MG/ML) SYRINGE As Ordered ONE (13:50)
[2020-09-17] MEDS ORDERED: PHENYLephrine 500MCG 5ML (100MCG/ML) SYRINGE As Ordered ONE (13:50)
[2020-09-17] MEDS ORDERED: ACETAMINOPHEN 1000MG 100ML IV BTL (OFIRMEV) (J0131 PER 10MG) As Ordered ONE (13:56)
[2020-09-17] MEDS ORDERED: ONDANSETRON 4MG/2ML VIAL As Ordered ONE ×2 (13:56→17:33)
[2020-09-17] MEDS ORDERED: HYDROmorphone HCL 2 MG/ML 1ML VIAL (J1170) As Ordered ONE (13:58)
[2020-09-17] MEDS ORDERED: HYDR-3713 PO (17:20)
[2020-09-17] MEDS ORDERED: PERCOCET 5MG/325MG TAB As Ordered ONE (17:33)
[2020-09-17] MEDS ORDERED: PERCOCET 5MG/325MG TAB PO PRN (17:45)
[2020-09-17] MEDS ORDERED: LR 1,000 ML IV SCH (17:45)
[2020-09-17] MEDS ORDERED: fentaNYL 100 MCG/2 ML INJECTION (J3010) IV PRN (17:45)
[2020-09-17] MEDS ORDERED: METOCLOPRAMIDE INJ 10MG/2ML VIAL (J2765 PER 1) IV PRN (17:45)
[2020-09-17] MEDS ORDERED: ONDANSETRON 4MG/2ML VIAL IV PRN (17:45)
[2020-09-17] MEDS ORDERED: NORCO, ANEXSIA 5/325MG TABLET (HYDROcodone/ACETAMINOPHEN) PO PRN (18:00)
[2020-09-17] MEDS ORDERED: IBUPROFEN 600MG TAB PO PRN (18:00)
[2020-09-17] MEDS ORDERED: ACETAMINOPHEN TAB 650MG DOSE (2X325MG) PO PRN (18:00)
[2020-09-17] MEDS ORDERED: diphenhydrAMINE 50MG/ML VIAL (J1200) As Ordered ONE (19:43)
[2020-09-17] MEDS ORDERED: KETOROLAC 60MG 2ML VIAL As Ordered ONE (19:56)
[2020-09-17] MEDS ORDERED: diphenhydrAMINE 50MG/ML VIAL (J1200) IV SCH (20:00)
[2020-09-17 20:40] VITALS: BP 168/88
--- NOTE | 2020-09-20 09:41 | RO ---
OPERATIVE NOTE DATE OF OPERATION: 09/17/2020 PREOPERATIVE DIAGNOSIS: Incarcerated left inguinal hernia. POSTOPERATIVE DIAGNOSIS: Incarcerated left inguinal hernia. PROCEDURE PERFORMED: Robotic-assisted laparoscopic left inguinal herniorrhaphy with ProGrip mesh. SURGEON: Emory Beverly MD STAFFING MANAGER: IJEOMA Chris ANESTHESIA: General. INDICATIONS FOR THE PROCEDURE: The patient is a 74-year-old man who has noticed a bulge in the inguinal area for about two years. This has become somewhat larger over time. He is scheduled for robotic-assisted laparoscopic repair of his hernia. On the day of surgery this was noted to be non-reducible. DESCRIPTION OF PROCEDURE: The patient was brought to the operating room and placed on the table in supine position. He was placed under general endotracheal anesthesia. The patient's lower abdomen, groins and genitalia were prepped and draped in sterile fashion. 0.25% Marcaine was infiltrated at each of the trocar sites as needed. The initial entry into the abdomen was in the left upper quadrant. 0.25% Marcaine was infiltrated and a short transverse incision was made. A Veress needle was inserted and after a positive hanging drop test the abdomen was inflated with CO2 gas. An 8 mm robotic port was placed over a 5 mm scope and advanced through the abdominal wall without difficulty. Initial examination showed no evidence of Veress needle or trocar injury. The liver appeared normal. There were some adhesions of the colon to the anterior abdominal wall low in the right lower quadrant. A second 8 mm port was placed in the supraumbilical position and third was placed in the right upper quadrant. The patient was tilted to an approximately 10 degree head-down position. The patient cart of the da Kaylee Xi robot was brought into position and the endoscope arm was attached to the supraumbilical port. Targeting took place in the left lower quadrant. The other robotic arms were then docked and cauterizing scissor was placed on the right with fenestrated bipolar on the left. I then moved to the control console to proceed with the operation. Initial examination showed some sigmoid colon protruding into a large hernia on the left. I attempted to reduce this by some gentle traction on the appendices epiploica and on the colon. There were a few adhesions of the colon to the opening of the hernia and these were lysed. It was possible to reduce the hernia partially but certainly not completely with a portion of the sigmoid colon still within the hernia. At this point I elected to proceed with creation of the peritoneal flap. The incision was begun with the cauterizing scissors at the medial umbilical ligament on the left and carried laterally. Unfortunately, as the incision in the peritoneum was carried laterally the inferior epigastric vessel was cut and there was some brisk bleeding noted. The bleeding was controlled by pressure with the fenestrated bipolar against the anterior abdominal wall. The peritoneal incision was extended further lateral to better expose the area of bleeding. It was possible to create some of the flap inferiorly to better expose this area using just the cauterizing scissors. The scissors were then switched out to a needle ups driver and 2-0 Vicryl was inserted. A suture was placed below the source of bleeding as a [id number] into the abdominal wall to incorporate the inferior epigastric vessels. This was tied down with marked decrease in the blood loss. A second suture was placed superior to the injury, that is more cephalad. With this suture tied down all bleeding ceased. At this point a suction fuel quality tech was inserted and approximately 150 mL of blood and clot was aspirated from the lower abdomen. There was no further bleeding noted. I then proceeded with the surgery. The peritoneal flap was extended laterally and then inferiorly toward the anterior superior iliac spine. The dissection was carried inferiorly at the medial aspect of the dissection first. Unfortunately there was blood staining of all of the tissues even in the preperitoneal space as blood had tracked in the posterior aspect of the rectus sheath. The dissection medially was carried down to the symphysis pubis and the Dirk's ligament was identified. The lateral aspect of the dissection was then performed carrying the dissection inferiorly. Attention was then turned to the hernia sac. This was placed on gentle traction and dissection was carried out primarily using the cautery and also with some blunt dissection with the tips of the scissors. It was possible to reduce the hernia sac intact from within the hernia defect. As the hernia sac was reduced the colon was released into the abdomen although there remained some adhesions of the colon to the peritoneal flap. The hernia was noted to be a large indirect hernia. Dissection continued working at the edge of the hernia sac, freeing this from the underlying spermatic cord structures and the vessels. The suction fuel quality tech was used several times to irrigate the preperitoneal space of some blood staining. Several small bleeding points were identified and controlled with cautery. At the conclusion of the dissection there was a small bleeding point identified which appeared to arise from a small branch off the inferior epigastric vessel just past its origin. This was suture ligated with 2-0 Vicryl. Final inspection in the preperitoneal space revealed excellent hemostasis. The fascial defect appeared large enough that it warranted some closure. I therefore selected an absorbable 2-0 V-Loc suture to close the defect. Closure was begun laterally closing the inguinal floor. The closure was carried medially to narrow this significantly. The suture was then carried back toward the beginning of the suturing and cut and the needle was withdrawn. A piece of ProGrip mesh from [email or web address] was then obtained. This was a 15 x 10 cm mesh. This was reference code [id number], lot #[id number]. This was trimmed at the corners and inserted into the abdomen. This was placed into the preperitoneal space, centered over the sutured fascial defect. Medially the inferior corner of the mesh extended to the area of the pubic symphysis and extended inferior to the Dirk's ligament. The mesh was flattened against the anterior abdominal wall of the inguinal floor and the adherent side was pressed gently into the soft tissues. Inspection revealed excellent placement of the mesh. The pressure within the abdomen was reduced to 10 mmHg. I then began the closure of the peritoneal flap. This was started laterally and carried medially using 2-0 V-Loc suture. As the closure approached the medial end the patient was returned to flat position and the pressure was reduced within the abdomen still further. As the completion of the closure was reached some gentle pressure was placed over the peritoneal flap to try to remove as much air from the preperitoneal space as possible. After completing the peritoneal flap closure the final needle was withdrawn. The robotic instruments were removed and the robotic arms were un-docked and patient cart withdrawn. I returned to the patient's side. The abdomen was deflated and the trocars were removed. The skin incisions were closed with buried sutures of 4-0 Vicryl and Steri-Strips. Light dressings were applied. The patient tolerated the procedure well. He was awakened in the operating room extubated and moved to the recovery room in stable condition. CHRISTOPHER
== END 2020-09-17 20:44 | disposition home or self-care (01) ==
LOC: M SDC 10:43
PROVIDERS: ATTEND Surgery
DX: K40.90 Unilateral inguinal hernia, without obstruction or gangrene, not specified as recurrent (principal); I10 Essential (primary) hypertension; I25.10 Atherosclerotic heart disease of native coronary artery without angina pectoris; E78.5 Hyperlipidemia, unspecified; Z79.01 Long term (current) use of anticoagulants; Z98.61 Coronary angioplasty status; Z79.899 Other long term (current) drug therapy; I73.9 Peripheral vascular disease, unspecified
CPT/HCPCS: 49650; C1781; J0131; J1170; J1200; J1885; J2250; J2370; J2405; J2765; J3010; S2900

== ENCOUNTER → 2024-02-02 | Outpatient (CLI) | payer OTHER, MEDICARE ==
[~2024-02-02] MED LIST changes: -BETI1SOL OU; -COSO1SOL3 OU; +DORZ10DR10 OU; +HYDR-3713 PO; -LR 1,000 ML IV ONE; +TIMO5DRO5 OU
== END ==
LOC: M PLALAB 10:23
PROVIDERS: ATTEND Physician Assistant
DX: R97.20 Elevated prostate specific antigen [PSA] (principal)

== ENCOUNTER → 2024-03-10 | Outpatient (REF) | payer MEDICARE, OTHER | LOC: M SMT 09:40 | PROVIDERS: ATTEND Urology | DX: C61 Malignant neoplasm of prostate (principal); R97.20 Elevated prostate specific antigen [PSA] ==

== ENCOUNTER → 2024-04-13 | Outpatient (CLI) | payer MEDICARE, OTHER ==
[~2024-04-13] MED LIST changes: +ACET50CA PO; +CIPR750T2 PO; +LORA1TAB23 PO
== END ==
LOC: M ONCR 14:17
PROVIDERS: ATTEND General Practice
DX: C61 Malignant neoplasm of prostate (principal); Z79.02 Long term (current) use of antithrombotics/antiplatelets; Z79.899 Other long term (current) drug therapy; Z79.82 Long term (current) use of aspirin

== ENCOUNTER → 2024-04-27 | Outpatient (CLI) | payer MEDICARE, OTHER ==
[~2024-04-27] VITALS: Ht 172.7 cm; Wt 81.9 kg
[2024-04-27 14:31] VITALS: BP 126/73; O2SAT 99
[2024-04-27] MEDS: LIDOCAINE VISCOUS 2% SOLN 15ML UDC XX ONE (14:57)
[2024-04-27] MEDS: LIDOCAINE 2% MDV 20ML VIAL XX ONE (15:01)
[2024-04-27 15:17] VITALS: BP 156/95; O2SAT 99
== END ==
LOC: M ONCR 14:12
PROVIDERS: ATTEND General Practice
DX: C61 Malignant neoplasm of prostate (principal)
CPT/HCPCS: 55874; 55876; A4648; C1889

== ENCOUNTER → 2024-05-29 | Outpatient (RCR) | payer OTHER, MEDICARE | LOC: M ONCR 05-09 13:43 | PROVIDERS: ATTEND General Practice | DX: Z51.0 Encounter for antineoplastic radiation therapy (principal); C61 Malignant neoplasm of prostate ==

== ENCOUNTER → 2024-06-29 | Outpatient (RCR) | payer MEDICARE, OTHER | LOC: M ONCR 05-30 12:07 | PROVIDERS: ATTEND General Practice | DX: Z51.0 Encounter for antineoplastic radiation therapy (principal); C61 Malignant neoplasm of prostate ==

== ENCOUNTER 2024-07-05 12:15 | Outpatient (RCR) | payer OTHER | END 2024-07-29 | LOC: M ONCR 12:15 | PROVIDERS: ATTEND General Practice | DX: Z51.0 Encounter for antineoplastic radiation therapy (principal); C61 Malignant neoplasm of prostate ==

== ENCOUNTER → 2025-01-11 | Outpatient (CLI) | payer OTHER, MEDICARE | LOC: M ONCR 12:33 | PROVIDERS: ATTEND General Practice | DX: C61 Malignant neoplasm of prostate (principal); Z79.82 Long term (current) use of aspirin; Z79.899 Other long term (current) drug therapy; Z92.3 Personal history of irradiation ==

== ENCOUNTER → 2025-07-17 | Outpatient (CLI) | payer OTHER, MEDICARE | LOC: M ONCR 12:35 | PROVIDERS: ATTEND General Practice | DX: C61 Malignant neoplasm of prostate (principal); Z92.3 Personal history of irradiation; Z72.89 Other problems related to lifestyle; Z79.02 Long term (current) use of antithrombotics/antiplatelets; Z79.82 Long term (current) use of aspirin; Z79.899 Other long term (current) drug therapy; N52.35 Erectile dysfunction following radiation therapy ==